=== PATIENT | male | born 1955 | race Caucasian/White ===

== ENCOUNTER → 2023-12-21 | Day surgery (SDC) | payer MEDICARE ==
[~2023-12-21] MED LIST: BALANCED SALT SOLN (OPTH) 15 ML BTL IO ONE; BUPIVACAINE HC 0.75% PF 10ML VIAL INJ ONE; LIDOCAINE 2% /EPINEPHRINE 20 ML SDV INJ ONE; LIDOCAINE HCL 1% 2 ML AMP ONE; LIDOCAINE HCL 1% 30ML-PF VIAL ONE; MAXITROL EYE O3.5 GM OD; NEOMYCIN/POLYMYXIN/DEX (OPTH) 3.5 GM TUBE ONE; NEOSTIGMINE 1 MG/ML 10ML VIAL ONE; POVIDONE IODINE 5% (OPTH) 30 ML BTL ONE; SUSTANE
[2023-12-21] MEDS: LACTATED RINGER'S 1,000 ML ONE (09:52)
[2023-12-21 13:55] VITALS: TEMP 97.1
[2023-12-21 14:15] VITALS: BP 140/65; PULSE 86; RESP 18; O2SAT 98
== END | disposition home or self-care (01) ==
LOC: OR 08:45
PROVIDERS: ATTEND Ophthalmology
DX: H11.052 Peripheral pterygium, progressive, left eye (principal); K58.9 Irritable bowel syndrome, unspecified; M54.2 Cervicalgia; M54.9 Dorsalgia, unspecified; F32.A Depression, unspecified; Z86.69 Personal history of other diseases of the nervous system and sense organs
CPT/HCPCS: 65426; 88304; J2001 ×2; J7121; J2710; V2790